=== PATIENT | female | born 2000 | race African-American/Black ===

== ENCOUNTER 2019-01-19 19:35 | Emergency (ER) | payer MEDICAID, OTHER ==
[2019-01-19] MEDS ORDERED: PREDNISONE 20MG TABLET PO STA (21:59)
[2019-01-19] MEDS ORDERED: AZITHROMYCIN 500 MG TABLET PO ONE (22:00)
[2019-01-19] MEDS ORDERED: IPRATROPIUM/ALBUTEROL 0.5-3(2.5)MG/3ML NEB HHN ONE (22:00)
[2019-01-19] MEDS ORDERED: IBUPROFEN 800MG TABLET PO ONE (23:15)
[2019-01-20 00:17] VITALS: BP 127/64
== END 2019-01-20 01:37 | disposition home or self-care (01) ==
LOC: ER 20:27
DX: J40 Bronchitis, not specified as acute or chronic (principal)
CPT/HCPCS: 71045; 81025; 94640; 99284; J7512; J7620; Z7610

== ENCOUNTER 2020-04-21 20:40 | Observation (INO) | payer MEDICAID ==
[~2020-04-21] VITALS: Ht 157.5 cm; Wt 86.2 kg
[2020-04-21] MEDS ORDERED: ALBUTEROL (0.083%) 2.5MG/3ML NEB HHN NR (22:30)
[2020-04-21] MEDS ORDERED: ALBUTEROL 6.7GM HFA INHALER ORI PRN (22:30)
[2020-04-21 22:38] LABS: CLARITY URINE CLOUDY (CLEAR); COLOR URINE YELLOW (YELLOW); KETONES URINE TRACE (NEGATIVE); LEUKOCYTE ESTERASE URINE 1+ (NEGATIVE); NITRITE URINE NEGATIVE (NEGATIVE); OCCULT BLOOD URINE NEGATIVE (NEGATIVE); PH URINE 5.5 (4.5-8.0); PROTEIN URINE NEGATIVE (NEGATIVE); SPECIFIC GRAVITY URINE 1.028 (1.005-1.030)
[2020-04-21] MEDS ORDERED: DEXT 5%/LACTATED RINGERS 1,000 ML IV ONE (22:45)
[2020-04-22] MEDS ORDERED: CEFAZOLIN 2,000 MG in DEXT 5% WATER 100 ML IV NR (00:36)
== END 2020-04-22 01:35 | disposition home or self-care (01) ==
LOC: 8 EST LDRP 20:40
PROVIDERS: ADMIT Obstetrics & Gynecology; ATTEND Obstetrics & Gynecology
DX: O26.893 Other specified pregnancy related conditions, third trimester (principal); O62.9 Abnormality of forces of labor, unspecified; R10.9 Unspecified abdominal pain; Z3A.34 34 weeks gestation of pregnancy
CPT/HCPCS: 59025; 76805; 76818; 81003; 94640; 96361; 96365; G0378; J0690; J7060; 96360; 99281

== ENCOUNTER 2020-05-04 03:16 | Inpatient (IN) | payer MEDICAID ==
[~2020-05-04] VITALS: Ht 157.5 cm; Wt 86.2 kg
[2020-05-04] MEDS ORDERED: ALBUTEROL (03:38)
[2020-05-04] MEDS ORDERED: PNV1TABL50 PO (03:38)
[2020-05-04] MEDS ORDERED: CASTOR (03:50)
[2020-05-04] MEDS: LACTATED RINGERS 1,000 ML IV SCH ×3 (04:07→11:55)
[2020-05-04] MEDS ORDERED: METHYLERGONOVINE MALEATE 0.2 MG/ML IM PRN (04:45)
[2020-05-04] MEDS ORDERED: NALOXONE HCL 0.4 MG/ML 1ML VIAL IM PRN (04:45)
[2020-05-04] MEDS ORDERED: DEXT 5%/LR + PITOCIN 20UNITS/L 1,000 ML IV SCH ×2 (04:45→14:00)
[2020-05-04] MEDS ORDERED: MISOPROSTOL 100MCG TABLET VG SCH (04:45)
[2020-05-04] MEDS ORDERED: LIDOCAINE HCL 1% 20ML VIAL (Pyxis) INJ INFIL SCH (04:45)
[2020-05-04] MEDS ORDERED: AMPICILLIN 2GM in NS 100ML 100 ML IV SCH (05:00)
[2020-05-04 05:03] LABS: CLARITY URINE CLEAR (CLEAR); COLOR URINE YELLOW (YELLOW); KETONES URINE NEGATIVE (NEGATIVE); LEUKOCYTE ESTERASE URINE NEGATIVE (NEGATIVE); NITRITE URINE NEGATIVE (NEGATIVE); OCCULT BLOOD URINE 3+ (NEGATIVE); PROTEIN URINE NEGATIVE (NEGATIVE); SPECIFIC GRAVITY URINE 1.013 (1.005-1.030); UROBILINOGEN URINE 0.2 E.U./dL (0.2-1.0)
[2020-05-04 05:05] LABS: BASOPHILS % 0.2 % (0.0-2.0); HEMATOCRIT. 25.9 % (36.0-48.0); HEMOGLOBIN. 7.8 g/dL (12.0-16.0); LYMPHOCYTES % 20.3 % (20.0-50.0); MEAN CORPUSCULAR HEMOGLOBIN 21.5 pg (28.0-32.0); MEAN CORPUSCULAR VOLUME 71.3 fL (81.0-99.0); MEAN PLATELET VOLUME 8.9 fl (7.4-10.4); MONOCYTES % 8.8 % (2.0-8.0); NEUTROPHILS % 66.7 % (40.0-76.0); PLATELET 235 x1000/uL (130-400); RED BLOOD CELL COUNT 3.63 mill/uL (4.2-5.4); RED CELL DISTRIBUTION WIDTH 18.3 % (11.6-14.6)
[2020-05-04 05:12] LABS: INR 0.9; PARTIAL THROMBOPLASTIN TIME 28.5 sec (23.4-31.0); PROTHROMBIN TIME 10.1 sec (9.6-11.0)
[2020-05-04 05:19] LABS: *AMPHETAMINES SCREEN URINE NEGATIVE (NEGATIVE)
[2020-05-04 05:20] LABS: *BARBITURATES SCREEN URINE NEGATIVE (NEGATIVE); *BENZODIAZEPINES SCREEN URINE NEGATIVE (NEGATIVE); *COCAINE SCREEN URINE NEGATIVE (NEGATIVE); CANNABINOID URINE SCREEN NEGATIVE (NEGATIVE); METHADONE URINE SCREEN NEGATIVE (NEGATIVE); OPIATES URINE SCREEN NEGATIVE (NEGATIVE); PHENCYCLIDINE URINE SCREEN NEGATIVE (NEGATIVE)
[2020-05-04] MEDS ORDERED: BETAMETHASONE ACET/BETAMET 30 MG/5 ML VIAL IM ONE (05:30)
[2020-05-04 05:42] LABS: HEPATITIS B SURFACE ANTIGEN NEGATIVE
[2020-05-04] MEDS ORDERED: ROPIVACAINE HCL/PF EPIDURAL 200 ML EPI SCH (06:30)
[2020-05-04] MEDS ORDERED: FENTANYL CITRATE/PF 50MCG/ML 2ML VIAL ONE (06:55)
[2020-05-04] MEDS ORDERED: BUPIVACAINE HCL/PF 0.25% (2.5MG/ML) 10ML ONE (06:57)
[2020-05-04] MEDS ORDERED: ALBUTEROL 6.7GM HFA INHALER ORI PRN (07:15)
[2020-05-04 08:14] LABS: HEMATOCRIT 25.9 % (36.0-48.0); HEMOGLOBIN 7.7 g/dL (12.0-16.0)
[2020-05-04] MEDS ORDERED: AMPICILLIN 1,000 MG in SODIUM CHLORIDE 0.9% 50 ML IV SCH (11:00)
[2020-05-04] MEDS ORDERED: RHO(D) IMMUNE GLOBULIN 300 MCG/SYR IM PRN (14:00)
[2020-05-04] MEDS ORDERED: IBUPROFEN 800MG TABLET PO PRN (14:00)
[2020-05-04] MEDS ORDERED: IBUPROFEN 400MG TABLET PO PRN (14:00)
[2020-05-04 15:15] VITALS: BP 119/51
[2020-05-04 15:45] VITALS: BP 111/50
[2020-05-04 22:00] VITALS: BP 121/52
[2020-05-05 05:45] VITALS: BP 98/55
[2020-05-05] MEDS ORDERED: IBUP-2030 PO (06:50)
[2020-05-05] MEDS ORDERED: FERR325T23 PO (06:50)
[2020-05-05] MEDS ORDERED: ALBU6.7H9 ORI (06:50)
[2020-05-05 08:02] VITALS: BP 102/45
[2020-05-05] MEDS: FERROUS SULFATE 325MG TABLET PO SCH ×2 (08:54→12:30)
[2020-05-05] MEDS ORDERED: PRENATAL VIT/FE FUMARATE/FA TABLET PO SCH (09:00)
== END 2020-05-05 15:05 | disposition home or self-care (01) | DRG 560 ==
LOC: 8 EST LDRP 03:16 → OBSVTOIN 03:16 → 8EST 15:21
PROVIDERS: ADMIT Obstetrics & Gynecology; ATTEND Obstetrics & Gynecology
PROC: 10E0XZZ Delivery of Products of Conception, External Approach (ICD-10-PCS; principal; 2020-05-04)
PROC: 3E0R3BZ Introduction of Anesthetic Agent into Spinal Canal, Percutaneous Approach (ICD-10-PCS; 2020-05-04)
PROC: 00HU33Z Insertion of Infusion Device into Spinal Canal, Percutaneous Approach (ICD-10-PCS; 2020-05-04)
DX: O42.913 Preterm premature rupture of membranes, unspecified as to length of time between rupture and onset of labor, third trimester (principal); J45.909 Unspecified asthma, uncomplicated; O99.52 Diseases of the respiratory system complicating childbirth; O60.14X0 Preterm labor third trimester with preterm delivery third trimester, not applicable or unspecified; Z20.822 Contact with and (suspected) exposure to COVID-19; O45.93 Premature separation of placenta, unspecified, third trimester; Z37.0 Single live birth; O99.02 Anemia complicating childbirth; Z3A.35 35 weeks gestation of pregnancy; D64.9 Anemia, unspecified; Z82.49 Family history of ischemic heart disease and other diseases of the circulatory system; Z87.51 Personal history of pre-term labor; Z91.012 Allergy to eggs; Z80.8 Family history of malignant neoplasm of other organs or systems; Z91.010 Allergy to peanuts
CPT/HCPCS: 36415; 76805; 80305; 81003; 85014; 85018; 85025; 86592; 86703; 86762; 86850; 86900; 86920; 87340; 87426; 99281; J0290; J0702; J2590; J2795; J3010; J3490; J7120; A4315

== ENCOUNTER 2021-04-11 16:34 | Observation (INO) | payer MEDICAID, OTHER ==
[~2021-04-11] VITALS: Ht 157.5 cm; Wt 81.6 kg
[~2021-04-11 16:34] MED LIST: ALBU6.7H9 ORI; ALBUTEROL; FERR325T23 PO; IBUP-2030 PO; PNV1TABL50 PO
[2021-04-11] MEDS ORDERED: LACTATED RINGERS 1,000 ML IV SCH ×2 (17:30)
== END 2021-04-11 18:40 | disposition home or self-care (01) ==
LOC: 8 EST LDRP 16:34
PROVIDERS: ADMIT Obstetrics & Gynecology; ATTEND Obstetrics & Gynecology
DX: O62.9 Abnormality of forces of labor, unspecified (principal); O99.891 Other specified diseases and conditions complicating pregnancy; M54.9 Dorsalgia, unspecified; Z3A.37 37 weeks gestation of pregnancy
CPT/HCPCS: 59025; 96360; G0378; 99281; G0379

== ENCOUNTER 2021-04-20 19:14 | Inpatient (IN) | payer MEDICAID, OTHER ==
[~2021-04-20] VITALS: Ht 157.5 cm; Wt 81.6 kg
[2021-04-20] MEDS ORDERED: DEXT 5%/LACTATED RINGERS 1,000 ML IV ONE (20:45)
[2021-04-20 20:56] LABS: HEMATOCRIT. 24.6 % (36.0-48.0); HEMOGLOBIN. 7.6 g/dL (12.0-16.0); MEAN CORPUSCULAR HEMOGLOBIN 21.3 pg (28.0-32.0); MEAN CORPUSCULAR VOLUME 69.3 fL (81.0-99.0); PLATELET 222 x1000/uL (130-400); RED BLOOD CELL COUNT 3.55 mill/uL (4.2-5.4); RED CELL DISTRIBUTION WIDTH 19.3 % (11.6-14.6)
[2021-04-20] MEDS ORDERED: DEXT 5%/LACTATED RINGERS 1,000 ML IV SCH (21:00)
[2021-04-20 21:12] LABS: CLARITY URINE CLEAR (CLEAR); COLOR URINE YELLOW (YELLOW); KETONES URINE TRACE (NEGATIVE); LEUKOCYTE ESTERASE URINE NEGATIVE (NEGATIVE); NITRITE URINE NEGATIVE (NEGATIVE); OCCULT BLOOD URINE NEGATIVE (NEGATIVE); PH URINE 5.5 (4.5-8.0); PROTEIN URINE NEGATIVE (NEGATIVE); SPECIFIC GRAVITY URINE 1.028 (1.005-1.030)
[2021-04-20 21:21] LABS: CHLORIDE 111 mEq/L (98-107)
[2021-04-20 22:32] LABS: PLATELET ESTIMATE NORMAL
[2021-04-20] MEDS ORDERED: MISOPROSTOL 100MCG TABLET VG STA (23:41)
[2021-04-20] MEDS ORDERED: LACTATED RINGERS 1,000 ML IV SCH (23:45)
[2021-04-21] MEDS ORDERED: LIDOCAINE HCL 1% 10 MG/ML 10ML VIAL IJ SCH (00:15)
[2021-04-21] MEDS ORDERED: ROPIVACAINE HCL/PF EPIDURAL 200 ML EPI SCH (03:15)
[2021-04-21 03:51] LABS: INR 0.9; PARTIAL THROMBOPLASTIN TIME 27.4 sec (23.4-31.0); PROTHROMBIN TIME 9.8 sec (9.6-11.0)
[2021-04-21] MEDS ORDERED: DEXT 5%/LR + PITOCIN 20UNITS/L 1,000 ML IV SCH ×2 (06:00→15:00)
[2021-04-21] MEDS ORDERED: LIDOCAINE HCL 2%/EPINEPHRINE 1:100,000 20 ML VIAL INFIL ONE (08:10)
[2021-04-21 09:50] LABS: *AMPHETAMINES SCREEN URINE NEGATIVE (NEGATIVE); *BARBITURATES SCREEN URINE NEGATIVE (NEGATIVE); *BENZODIAZEPINES SCREEN URINE NEGATIVE (NEGATIVE); *COCAINE SCREEN URINE NEGATIVE (NEGATIVE); CANNABINOID URINE SCREEN NEGATIVE (NEGATIVE); METHADONE URINE SCREEN NEGATIVE (NEGATIVE); OPIATES URINE SCREEN NEGATIVE (NEGATIVE); PHENCYCLIDINE URINE SCREEN NEGATIVE (NEGATIVE)
[2021-04-21] MEDS ORDERED: OXYCODONE HCL/ACETAMINOPHEN 5/325MG TABLET PO PRN (15:00)
[2021-04-21] MEDS ORDERED: BENZOCAINE/LANOLIN/ALOE VERA SPRAY TOP PRN (15:00)
[2021-04-21] MEDS ORDERED: IBUPROFEN 400MG TABLET PO PRN (15:00)
[2021-04-21 17:00] VITALS: BP 119/65
[2021-04-21 18:00] VITALS: BP 122/65
[2021-04-21] MEDS: IBUPROFEN 800MG TABLET PO PRN (18:28)
[2021-04-21 20:00] VITALS: BP 129/77
[2021-04-21] MEDS: DOCUSATE SODIUM 100MG CAPSULE PO SCH (20:27)
[2021-04-22 03:00] VITALS: BP 126/76
[2021-04-22] MEDS: IBUPROFEN 800MG TABLET PO PRN ×2 (03:17→19:37)
[2021-04-22 07:28] LABS: BASOPHILS % 0.4 % (0.0-2.0); EOSINOPHILS % 4.8 % (0.0-5.0); HEMATOCRIT. 23.8 % (36.0-48.0); HEMOGLOBIN. 7.1 g/dL (12.0-16.0); MEAN CORPUSCULAR HEMOGLOBIN 20.6 pg (28.0-32.0); MEAN CORPUSCULAR VOLUME 68.7 fL (81.0-99.0); MEAN PLATELET VOLUME 9.3 fl (7.4-10.4); MONOCYTES % 10.2 % (2.0-8.0); NEUTROPHILS % 61.6 % (40.0-76.0); PLATELET 200 x1000/uL (130-400); RED BLOOD CELL COUNT 3.46 mill/uL (4.2-5.4); RED CELL DISTRIBUTION WIDTH 20.3 % (11.6-14.6)
[2021-04-22] MEDS: PRENATAL VIT/FE FUMARATE/FA TABLET PO SCH (08:28)
[2021-04-22] MEDS: FERROUS SULFATE 325MG TABLET PO SCH ×3 (08:28→17:15)
[2021-04-22 08:30] VITALS: BP 122/50
[2021-04-22] MEDS: DOCUSATE SODIUM 100MG CAPSULE PO SCH ×3 (09:00→19:36)
[2021-04-22 15:24] VITALS: BP 131/50
[2021-04-22 19:30] VITALS: BP 121/70
[2021-04-23 05:00] VITALS: BP 126/72
[2021-04-23 07:08] LABS: HEMATOCRIT 24.1 % (36.0-48.0); HEMOGLOBIN 7.3 g/dL (12.0-16.0); MEAN CORPUSCULAR VOLUME 69.3 fL (81.0-99.0); PLATELET 202 x1000/uL (130-400); RED BLOOD CELL COUNT 3.47 mill/uL (4.2-5.4); RED CELL DISTRIBUTION WIDTH 19.7 % (11.6-14.6)
[2021-04-23 08:15] VITALS: BP 117/77
[2021-04-23] MEDS: FERROUS SULFATE 325MG TABLET PO SCH (08:55)
[2021-04-23] MEDS: PRENATAL VIT/FE FUMARATE/FA TABLET PO SCH (08:55)
[2021-04-23 21:56] LABS: HEPATITIS B SURFACE ANTIGEN NEGATIVE
== END 2021-04-23 12:20 | disposition home or self-care (01) | DRG 560 ==
LOC: OBSVTOIN 19:14 → 8 EST LDRP 19:14 → 8EST 04-21 17:20
PROVIDERS: ADMIT Obstetrics & Gynecology; ATTEND Obstetrics & Gynecology
PROC: 10D07Z6 Extraction of Products of Conception, Vacuum, Via Natural or Artificial Opening (ICD-10-PCS; principal; 2021-04-21)
PROC: 0HQ9XZZ Repair Perineum Skin, External Approach (ICD-10-PCS; 2021-04-21)
PROC: 3E0R3BZ Introduction of Anesthetic Agent into Spinal Canal, Percutaneous Approach (ICD-10-PCS; 2021-04-21)
PROC: 00HU33Z Insertion of Infusion Device into Spinal Canal, Percutaneous Approach (ICD-10-PCS; 2021-04-21)
DX: O76 Abnormality in fetal heart rate and rhythm complicating labor and delivery (principal); Z37.0 Single live birth; O99.344 Other mental disorders complicating childbirth; D64.9 Anemia, unspecified; O99.52 Diseases of the respiratory system complicating childbirth; O69.81X0 Labor and delivery complicated by cord around neck, without compression, not applicable or unspecified; J45.909 Unspecified asthma, uncomplicated; Z20.822 Contact with and (suspected) exposure to COVID-19; O70.0 First degree perineal laceration during delivery; F32.9 Major depressive disorder, single episode, unspecified; O90.81 Anemia of the puerperium; Z3A.38 38 weeks gestation of pregnancy; Z79.1 Long term (current) use of non-steroidal anti-inflammatories (NSAID); Z79.899 Other long term (current) drug therapy; Z91.012 Allergy to eggs; Z91.010 Allergy to peanuts; Z81.8 Family history of other mental and behavioral disorders
CPT/HCPCS: 36415; 76805; 76818; 80053; 80305; 81003; 85025; 85027; 85384; 86592; 86703; 86762; 86850; 86900; 87340; 87426; 99281; J2590; J3490; J7120; J7121

== ENCOUNTER 2022-09-30 16:42 | Emergency (ER) | payer MEDICAID, OTHER ==
[~2022-09-30] VITALS: Ht 157.5 cm; Wt 84.6 kg
[~2022-09-30 16:42] MED LIST changes: -ALBU6.7H9 ORI; -ALBUTEROL
[2022-09-30 17:28] VITALS: BP 129/78; PULSE 82; RESP 14; TEMP 98.6; O2SAT 100
[2022-09-30] MEDS ORDERED: TRIA15CR61 TP (17:40)
[2022-09-30] MEDS ORDERED: P50 MT (17:40)
== END 2022-09-30 17:51 | disposition home or self-care (01) ==
LOC: ER 16:42
DX: R21 Rash and other nonspecific skin eruption (principal); J45.909 Unspecified asthma, uncomplicated; Z91.010 Allergy to peanuts; Z98.890 Other specified postprocedural states
CPT/HCPCS: 99283

== ENCOUNTER 2022-10-11 09:35 | Emergency (ER) | payer OTHER ==
[~2022-10-11] VITALS: Ht 154.9 cm; Wt 81.5 kg
[~2022-10-11 09:35] MED LIST changes: +P50 MT; +TRIA15CR61 TP
[2022-10-11 09:53] VITALS: BP 162/110; PULSE 88; RESP 16; TEMP 98.5; O2SAT 99
[2022-10-11] MEDS ORDERED: ACETAMINOPHEN 650MG/20.3ML UDC PO ONE (10:45)
[2022-10-11] MEDS ORDERED: IBUPROFEN 400MG TABLET PO ONE (10:45)
[2022-10-11] MEDS ORDERED: IBUP-2028 MT (10:51)
[2022-10-11] MEDS ORDERED: MED4 MT (10:51)
[2022-10-11] MEDS ORDERED: CEPH250C2 MT (10:51)
== END 2022-10-11 11:03 | disposition home or self-care (01) ==
LOC: ER 09:35
DX: R21 Rash and other nonspecific skin eruption (principal); D64.9 Anemia, unspecified; J45.909 Unspecified asthma, uncomplicated; Z79.899 Other long term (current) drug therapy
CPT/HCPCS: 99283